=== PATIENT | male | born 1975 | race Caucasian/White ===

== ENCOUNTER → 2019-05-20 13:01 | Outpatient (CLI) | payer BC, SELFPAY ==
--- NOTE | ~2019-05-20 | XR_ITS ---
EXAMINATION: XR ankle RT min 3V, XR foot RT min 3V EXAM DATE: 05/20/2019 13:23 INDICATION: No known recent injury provided at this time. Pain of the right foot, ankle. TECHNIQUE: Right foot dorsoplantar, lateral and oblique projections obtained and reviewed. Right ank le frontal, lateral and oblique projections obtained and reviewed. There is no prior study for nick degroot. FINDINGS: Right metatarsal bones unremarkable. The right ankle mortise appears intact. There is mi ld right ankle primary osteoarthritis. The lungs are clear. There are no pleural effusions. The car diomediastinal silhouette is within normal limits. There is no pneumothorax suspected. The bones an d soft tissues are unremarkable. There are no bony erosions identified. No periosteal reaction or b and of sclerosis to suggest subacute stress fracture. IMPRESSION: Mild right ankle osteoarthritis. Unremarkable foot. Reviewed, dictated and finalized at location B. IMPRESSION: Mild right ankle osteoarthritis. Unremarkable foot.
== END ==
PROVIDERS: PCP Family Medicine; Visit Provider Family Medicine
DX: M19.071 Primary osteoarthritis, right ankle and foot (principal)
CPT/HCPCS: 73610; 73630

== ENCOUNTER 2021-02-08 08:35 | Emergency (ER) | payer BC, SELFPAY ==
[2021-02-08 08:46] VITALS: BP 140/82; PULSE 76; RESP 16; TEMP 36.2; O2SAT 99
--- NOTE | 2021-02-08 09:27 | ED.URI ---
HPI - URI/Sore Throat General Chief Complaint: Upper Respiratory Infection Stated Complaint: Cough,Congestion Time Seen by Provider: 02/08/21 09:27 Source: patient Mode of arrival: ambulatory Limitations: no limitations History of Present Illness HPI Narrative: Chago Tay is a 45 yo male with no PMH who comes with 2 weeks of cough sinus drainage there is only gotten worse. He has no fever but he has been awake for the last 2 nights coughing and unable to get a rest Related Data Home Medications Medication Instructions Recorded Confirmed No Home Medications 02/08/21 02/08/21 Allergies Allergy/AdvReac Type Severity Reaction Status Date / Time No Known Allergies Allergy Verified 02/08/21 09:27 Review of Systems Review of Systems: CONSTITUTIONAL: Denies fever, chills, sweats. EYES: Denies visual changes, redness, discharge. ENT: Denies rhinorrhea, has congestion, sore throat, otalgia. CARDIOVASCULAR: Denies chest pain, palpitations, edema. RESPIRATORY: Denies dyspnea, wheezing, has cough GASTROINTESTINAL: Denies abdominal pain, nausea, vomiting, diarrhea. GENITOURINARY: Denies dysuria, hematuria, abnormal discharge SKIN: Denies rash or itching. NEUROLOGIC: Denies numbness, or focal weakness. PSYCHIATRIC: Denies anxiety or depression. PMFSH Past Medical History Medical History No acute medical problems Family History Family History Sibling Family history of diabetes mellitus in first degree relative Father Family history of heart disease in male family member before age 55 Mother Family history of celiac disease Other Diabetes mellitus Social History Social History Smoking status: Never smoker Alcohol intake: current Comments At time of signature, I agree with nursing past medical, surgical, social and family history. There is no relevant family history pertinent to the presenting complaint. Exam Narrative: GENERAL: This is a well-nourished, well-developed patient, in mild distress. HEAD: normocephalic, atraumatic. EYES: Sclera clear/white. Vision is grossly intact. EARS: External ears normal, auditory canals clear and without drainage, TMs normal without perforation. Hearing grossly intact. NOSE: External nose normal with nasal discharge, nares with redness, has rhinorrhea. THROAT: Mucous membranes moist, posterior pharynx is erythematous NECK: Neck supple, non-tender CARDIOVASCULAR: Regular rate and rhythm without murmurs, gallops, or rubs. RESPIRATORY: Coarse to auscultation. Breath sounds equal bilaterally. No wheezes, rales, or rhonchi. Dry cough GASTROINTESTINAL: Abdomen soft, non-tender, SKIN: warm, intact with no suspicious lesions or rash, good texture and turgor. NEURO: awake, alert, and oriented to person, place and time. There were no obvious focal neurologic abnormalities. Steady gait EXTREMITIES: Normal range of motion. BACK: Nontender without deformity Course Course Emergency Course: Patient here with 2 weeks of coughing and postnasal drainage; started cough has tested negative for strep and Covid Patient started on Z-Robert prednisone Tessalon Perles and codeine cough Vital Signs Vital signs: Vital Signs Temperature 97.1 F L 02/08/21 08:46 Pulse Rate 76 02/08/21 08:46 Respiratory Rate 16 02/08/21 08:46 Blood Pressure 140/82 02/08/21 08:46 Pulse Oximetry 99 02/08/21 08:46 Temperature 97.1 F L 02/08/21 08:46 Pulse Rate 76 02/08/21 08:46 Respiratory Rate 16 02/08/21 08:46 Blood Pressure 140/82 02/08/21 08:46 Pulse Oximetry 99 02/08/21 08:46 MDM - URI/Sore Throat Differential Diagnosis Differential diagnosis: Likely upper respiratory infection, sinusitis, bronchitis, influenza, pharyngitis and other Critical Care Time Critical Care Time Critical Care Time: No
== END 2021-02-08 09:58 | disposition home or self-care (01) ==
PROVIDERS: Emergency Provider Nurse Practitioner; PCP Family Medicine
DX: J40 Bronchitis, not specified as acute or chronic (principal)
CPT/HCPCS: 99213; G0463

== ENCOUNTER → 2021-07-04 10:13 | Outpatient (CLI) | payer BC, SELFPAY ==
--- NOTE | ~2021-07-04 | US_ITS ---
EXAMINATION: US soft tissue groin RT DATE: 07/04/2021 10:43 INDICATION: Right groin pain TECHNIQUE: Multiple grayscale and Doppler ultrasound images of the region of concern at the right dunia in were obtained. Radiologist was also present for real-time imaging. COMPARISON: None FINDINGS: No right inguinal hernia. No evident central hernia or other abnormal masses or fluid collections at the region of concern. The site of maximal pain is positioned slightly superior and medial to the ent janine to the inguinal canal along the distal right rectus femoris muscle which appeared unremarkable on ultrasound imaging. IMPRESSION: 1. Normal study. No right inguinal hernia or other etiology identified for reported pain at the anter ior right pelvis. Reviewed, dictated and finalized at location B. IMPRESSION: 1. Normal study. No right inguinal hernia or other etiology identified for repo rted pain at the anterior right pelvis.
== END ==
PROVIDERS: PCP Family Medicine; Visit Provider Nurse Practitioner Family
DX: R10.31 Right lower quadrant pain (principal)
CPT/HCPCS: 76882

== ENCOUNTER 2023-02-04 12:37 | Outpatient (CLI) | payer BC, SELFPAY ==
--- NOTE | ~2023-02-04 | US_ITS ---
US scrotum doppler INDICATION: Epididymal cysts TECHNIQUE: Testicular sonogram utilizing grayscale and color Doppler FINDINGS: The testes are normal in size and appearance. No focal lesions are seen. The right testes measures 4.5 x 2.4 x 2.7 cm centimeters, and the left testis measures 4.7 x 2.8 x 2.4 cm cm. There is normal vascular flow to both testes. There are bilateral epididymal cysts. There is a complicated left hydrocele. There is a left varicocele. IMPRESSION: 1. Left varicocele. 2: Complicated left hydrocele with internal debris. 3: Bilateral epididymal cysts, largest on the right measuring 4.2 cm. Reviewed, dictated and finalized at location B. [employer]CH[employer]ICIAN
== END 2023-02-04 12:38 | disposition home or self-care (01) ==
PROVIDERS: PCP Family Medicine; Visit Provider Urology
DX: N50.3 Cyst of epididymis (principal); I86.1 Scrotal varices; N43.3 Hydrocele, unspecified
CPT/HCPCS: 76870; 93976